=== PATIENT | male | born 1995 | race African-American/Black ===

== ENCOUNTER 2022-05-12 18:58 | Emergency (ER) | payer OTHER, SELFPAY ==
[2022-05-12 19:17] VITALS: BP 132/86; PULSE 52; RESP 16; TEMP 36.6; O2SAT 100
--- NOTE | 2022-05-12 20:54 | ED.ANIMALBIT ---
HPI - Animal Bite General Chief Complaint: Animal Bite Stated Complaint: attacked by dog Time Seen by Provider: 05/12/22 20:06 History of Present Illness HPI narrative: 26-year-old male presents to the emergency room for evaluation of a dog bite. 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 Patient states that the dog bit him in the right axillary region. Patient went to [facility] initially, but left without being seen due to the excessive wait times. Patient did not inquire as to whether or not animal was up-to-date on its shots. Review of Systems Review of Systems: CONSTITUTIONAL: Denies fever, chills, or sweats. EYES: Denies visual changes, redness, or discharge. ENT: Denies rhinorrhea, congestion, sore throat, or otalgia. CARDIOVASCULAR: Denies chest pain, palpitations, or edema. RESPIRATORY: Denies cough or dyspnea. GASTROINTESTINAL: Denies abdominal pain, nausea, vomiting, or diarrhea. GENITOURINARY: Denies dysuria or hematuria. SKIN: Reports animal bite to right axillary region MUSCULOSKELETAL: Denies back pain, joint pain, or myalgia. NEUROLOGIC: Denies headache, numbness, dizziness, or weakness. PSYCHIATRIC: Denies anxiety or depression. Exam Narrative: GENERAL: Well-appearing, well-nourished, no physical limitations, and in no acute distress. HEAD: Normocephalic, atraumatic. EYES: Conjunctivae normal, PERRLA and EOMI. CHEST: Clear to auscultation. No respiratory distress. No wheezes rales or rhonchi. HEART: Regular rate and rhythm. No murmur heard. Normal peripheral pulses. ABDOMEN: Soft, nontender, nondistended, normal active bowel sounds. EXTREMITIES: Normal range of motion. No edema. No clubbing or cyanosis SKIN: right lateral torso: Multiple puncture wounds to axillary region, surrounding erythema. NEURO: No focal deficits. Alert and oriented x3. MAEW. CN's II-XI intact bilaterally, normal gait PSYCH: Cooperative. Normal mood and affect. Course Course Emergency Course: 2044: Patient refused treatment for rabies, stating that he was able to contact the examiner of currency of the dog. Picture Framer states that the dog is up-to-date on his rabies vaccinations. Explained the risks and benefits of not continuing Vital Signs Vital signs: Vital Signs Temperature 36.6 C 05/12/22 19:17 Pulse Rate 52 L 05/12/22 19:17 Respiratory Rate 16 05/12/22 19:17 Blood Pressure 132/86 05/12/22 19:17 Pulse Oximetry 100 05/12/22 19:17 Oxygen Delivery Room Air 05/12/22 19:17 Temperature 36.6 C 05/12/22 19:17 Pulse Rate 52 L 05/12/22 19:17 Respiratory Rate 16 05/12/22 19:17 Blood Pressure 132/86 05/12/22 19:17 Pulse Oximetry 100 05/12/22 19:17 Oxygen Delivery Room Air 05/12/22 19:17 Discharge Plan Discharge Clinical Impression: Bite by animal, Dog bite Patient Disposition: Home, Self-Care Condition: Stable Instructions: Antibiotic Form, Animal Bite (ED) Prescriptions: New amoxicillin-pot clavulanate 875-125 mg tablet 1 tablet PO Q12H 10 Days Qty: 20 0RF Follow-up/Referrals: PHYSICIAN,[facility] SPECIALIST [Primary Care Provider] - Time of Disposition: 20:57
[2022-05-12] MEDS: TETANUS,DIPHTHERIA,AC PERTUSSIS ADULT (0.5 ML) BOOSTRIX IM (21:45)
== END 2022-05-12 21:54 | disposition home or self-care (01) ==
PROVIDERS: Emergency Provider Nurse Practitioner Family; PCP Internal Medicine
DX: S41.151A Open bite of right upper arm, initial encounter (principal); Z23 Encounter for immunization; W54.0XXA Bitten by dog, initial encounter
CPT/HCPCS: 90471; 90714; 90715; 99283

== ENCOUNTER 2022-10-16 11:06 | Emergency (ER) | payer BC, SELFPAY ==
[2022-10-16 11:29] VITALS: BP 133/90; PULSE 52; RESP 20; TEMP 36.2; O2SAT 100
[2022-10-16 12:04] LABS: Strep Group A RT-PCR NOT DETECTED (Negative)
[2022-10-16 12:19] LABS: Influenza A QL RT-PCR Negative (Negative); Influenza B QL RT-PCR Negative (Negative); SARS-CoV-2 RNA PCR Negative (Negative)
[2022-10-16 14:14] VITALS: BP 135/89; PULSE 60; RESP 18; TEMP 36.4; O2SAT 100
[2022-10-16 14:50] LABS: Appearance Urine Clear (Clear); Bilirubin Urine Negative (Negative); Blood Urine Negative (Negative); Color Urine Yellow (Yellow); Glucose Urine UA Negative (Negative); Ketones Urine Negative (Negative); Leukocyte Esterase Ur Negative LEU/UL (Negative); Nitrate Urine Negative (Negative); Protein Urine Negative (Negative); Specific Grav Ur 1.028 (1.001-1.035)
[2022-10-16 14:53] LABS: Add Urine Microscopic? NO
--- NOTE | 2022-10-16 15:29 | ED.URI ---
HPI - URI/Sore Throat General Chief Complaint: Upper Respiratory Infection Stated Complaint: fever and congestion Time Seen by Provider: 10/16/22 14:26 History of Present Illness HPI Narrative: 26-year-old male here for evaluation of upper respiratory infectious symptoms x1 day. Patient states that he started to feel unwell yesterday with some chills, sore throat and swollen glands in his neck. Patient states that his niece is sick with similar symptoms but his COVID test was negative. He has not taken any medicine for his symptoms. States he presented to the ED because I just do not have time to be sick . He was treated for UTI and chlamydia last week with Rocephin IM, doxycycline, and was on Bactrim for UTI. States his urinary symptoms have improved, wanting tested for cure. Related Data Allergies Allergy/AdvReac Type Severity Reaction Status Date / Time No Known Allergies Allergy Verified 10/16/22 14:18 Exam Narrative: APPEARANCE: Well appearing, no pain in distress, well-nourished. Head: Normocephalic and atraumatic. EYES: PERRLA/EOMI, conjunctivae clear NOSE: No nasal drainage EARS: Ceruminosis. External ear normal in appearance THROAT: Tonsils are 1+ bilaterally without exudates. Uvula is midline. Oropharynx is clear. Mucous membranes are moist. NECK: Supple. No adenopathy, no masses. RESPIRATORY: Airway patent, respirations nonlabored. Clear to auscultation bilaterally, no rales, rhonchi, wheezing. CARDIOVASCULAR: Regular rate and rhythm without murmurs, rubs, or gallops. ABDOMINAL: Normoactive bowel sounds. Soft, nontender, nondistended. No rebound tenderness or guarding. MUSCULOSKELETAL: Extremities are warm and well-perfused. Moves all extremities well. No edema. NEURO: Normal speech. No focal neurologic deficits. SKIN: Skin is warm and dry. No rashes. PSYCHIATRIC: Normal affect/mood.. Course Vital Signs Vital signs: Vital Signs Temperature 97.2 F L 10/16/22 11:29 Pulse Rate 52 L 10/16/22 11:29 Respiratory Rate 20 10/16/22 11:29 Blood Pressure 133/90 10/16/22 11:29 Pulse Oximetry 100 10/16/22 11:29 Oxygen Delivery Room Air 10/16/22 11:29 Temperature 97.5 F L 10/16/22 14:14 Pulse Rate 60 10/16/22 14:14 Respiratory Rate 18 10/16/22 14:14 Blood Pressure 135/89 10/16/22 14:14 Pulse Oximetry 100 10/16/22 14:14 Oxygen Delivery Room Air 10/16/22 11:29 MDM - URI/Sore Throat MDM Narrative Medical decision making narrative: 26-year-old male here for evaluation of upper respiratory infectious symptoms x1 day. He is nontoxic in appearance and has normal vital signs. Heart, lungs clear to auscultation, posterior oropharynx is normal in appearance. Strep, COVID flu negative. Likely viral URI. Additionally, patient is requesting test of cure as he was treated for chlamydia last week. Advised patient that these test do not result today and he will need to follow-up on the results himself. UA is unremarkable. Discharged home, we discussed return precautions and he voiced understanding. Lab Data Labs: Lab Results 10/16/22 10/16/22 Range/Units 11:34 14:36 Urine Color Yellow (Yellow) Urine Appearance Clear (Clear) Urine pH 6.0 (5.0-9.0) Ur Specific [place] 1.028 (1.001-1.035) Urine Protein Negative (Negative) mg/dL Urine Glucose (UA) Negative (Negative) mg/dL Urine Ketones Negative (Negative) mg/dL Ur Blood (Man) Negative (Negative) Urine Nitrate Negative (Negative) Urine Bilirubin Negative (Negative) Urine Urobilinogen 1.0 (<2.0) mg/dL Leukocyte Esterase Rfl Negative (Negative) NIYAH/UL C.trachomatis RNA (TMA) Pending Influenza A (RT-PCR) Negative (Negative) Influenza B (RT-PCR) Negative (Negative) N.gonorrhoeae RNA (TMA) Pending SARS-CoV-2 RNA (RT-PCR) Negative (Negative) Group A Strep (PCR) Not detected (Negative) Trichomonas Direct ID Cancelled T. vaginalis Amp RNA
== END 2022-10-16 16:05 | disposition home or self-care (01) ==
PROVIDERS: Emergency Medicine; Emergency Provider Physician Assistant; PCP Internal Medicine
DX: J06.9 Acute upper respiratory infection, unspecified (principal); Z20.822 Contact with and (suspected) exposure to COVID-19
CPT/HCPCS: 81003; 87491; 87591; 87636; 87651; 87661; 99283

== ENCOUNTER 2023-01-27 06:56 | Emergency (ER) | payer BC, SELFPAY ==
[2023-01-27 07:09] VITALS: BP 136/88; PULSE 59; RESP 18; TEMP 36.3; O2SAT 100
--- NOTE | 2023-01-27 07:46 | ED.GENADULT ---
HPI - General Adult General Chief complaint: Unspecified Stated complaint: Chills, bodyaches Time Seen by Provider: 01/27/23 07:46 Source: patient and RN notes reviewed History of Present Illness HPI narrative: 27 years old -[place] bisexual male presents with feeling chilly, not feeling well since started doxycycline and January 13 for recent diagnosis of syphilis. Patient was diagnosed of [facility] and [facility] on [facility] 13 started on doxycycline 100 twice daily, but not feeling well since. He denies any fever, nausea, vomiting, abdominal pain, back pain, headache. Related Data Home Medications Medication Instructions Recorded Confirmed doxycycline hyclate 100 mg 100 mg PO BID 01/27/23 tablet,delayed release Allergies Allergy/AdvReac Type Severity Reaction Status Date / Time No Known Allergies Allergy Verified 01/27/23 07:39 Review of Systems Review of Systems: All systems reviewed & are unremarkable except as noted in HPI and below Exam Narrative: General appearance: Well-developed, well-nourished Skin: Normal color Head: Normocephalic, nontraumatic Eyes: Clear conjunctiva ENT: Oropharynx normal, ears normal, nose normal Neck: Supple, nontender Chest and respiratory: Airway patent, no respiratory distress, no accessory muscle use Heart: Regular rate/rhythm Abdomen: Soft, nontender, no organomegaly, quiet bowel sounds Vascular: Normal peripheral pulses, normal capillary refill. Musculoskeletal: Normal range of motion, nontender back Neurologic: Alert and oriented ?3, HOME IMPROVEMENT ADVISOR is normal as tested, no gross motor deficit Course Reevaluation(s) Reevaluation #1: No new changes compared to on arrival to the ED Date: 01/27/23 Time: 08:26 Vital Signs Vital signs: Vital Signs Temperature 36.3 C L 01/27/23 07:09 Pulse Rate 59 L 01/27/23 07:09 Respiratory Rate 18 01/27/23 07:09 Blood Pressure 136/88 01/27/23 07:09 Pulse Oximetry 100 01/27/23 07:09 Oxygen Delivery Room Air 01/27/23 07:09 Temperature 36.3 C L 01/27/23 07:09 Pulse Rate 59 L 01/27/23 07:09 Respiratory Rate 18 01/27/23 07:09 Blood Pressure 136/88 01/27/23 07:09 Pulse Oximetry 100 01/27/23 07:09 Oxygen Delivery Room Air 01/27/23 07:09 Medical Decision Making MDM Narrative Medical decision making narrative: Patient had recent diagnosis of gonorrhea and syphilis, started on doxycycline and January 13 not been feeling well since. Doxycycline versus complication of syphilis and gonorrhea are my concern. Work-up today include CBC, CMP and urine analysis showed no abnormalities. Patient probably need to change the antibiotic to something else. Patient was advised to follow-up with the health department for further management. Differential Diagnosis Differential Diagnosis: Drug reaction, complication of syphilis and gonorrhea, electrolyte imbalance, dehydration, urinary tract infection Medical Records Medical records reviewed: Yes I reviewed the external patient's medical records. Vital Signs Vital Signs: Vital Signs Temperature 36.3 C L 01/27/23 07:09 Pulse Rate 59 L 01/27/23 07:09 Respiratory Rate 18 01/27/23 07:09 Blood Pressure 136/88 01/27/23 07:09 Pulse Oximetry 100 01/27/23 07:09 Oxygen Delivery Room Air 01/27/23 07:09 Temperature 36.3 C L 01/27/23 07:09 Pulse Rate 59 L 01/27/23 07:09 Respiratory Rate 18 01/27/23 07:09 Blood Pressure 136/88 01/27/23 07:09 Pulse Oximetry 100 01/27/23 07:09 Oxygen Delivery Room Air 01/27/23 07:09 Lab Data Lab results reviewed: Yes I reviewed the patient's lab results. 01/27/23 08:09 01/27/23 08:
[2023-01-27 08:14] LABS: Basophils Percent Auto 0.4 % (0.2-1.2); Eosinophils Absolute Auto 0.1 K/mm3 (0-0.3); Eosinophils Percent Auto 1.5 % (0-4.4); Immature Granulocyte Absolute 0.01 K/mm3 (0.00-0.031); Immature Granulocyte Percent A 0.2 % (0-0.5); Lymphocytes Absolute Auto 1.83 K/mm3 (0.9-3.2); Lymphocytes Percent Auto 39.8 % (18.3-44.2); Mean Corpuscular HGB Conc 32.6 g/dl (32-36); Mean Corpuscular Hemoglobin 28.7 pg (26-34); Mean Corpuscular Volume 88.3 fl (80-100); Monocytes Absolute Auto 0.5 K/mm3 (0.1-0.6); Neutrophils Absolute Auto 2.2 K/mm3 (1.3-6.7); Neutrophils Percent Auto 48.1 % (45.5-73.1); Platelet Count Result 169 k/mm3 (150-375); Red Blood Count 4.87 M/mm3 (4.6-6.20); Red Cell Distribution Width 14.1 % (11.5-14.5); White Blood Count 4.6 K/mm3 (4.5-10.0)
[2023-01-27 08:24] LABS: Alanine Aminotransferase 31 U/L (6-50); Albumin Level 4.2 g/dL (3.5-5.1); Alkaline Phosphatase 68 U/L (38-126); Anion Gap 4 mmol/L (8-16); Aspartate Amino Transferase 31 U/L (17-59); Bilirubin,Total 1.1 mg/dL (0.2-1.3); Blood Urea Nitrogen 12 mg/dL (9-20); Calcium 8.9 mg/dL (8.4-10.2); Carbon Dioxide 29 mmol/L (22-30); Chloride 102 mmol/L (98-107); Estimated CRCL calculation 107 ml/min; Estimated Glomerular Filt Rate > 60; Glucose 94 mg/dL (65-110); Sodium 135 mmol/L (137-145)
== END 2023-01-27 09:45 | disposition home or self-care (01) ==
PROVIDERS: Emergency Provider Emergency Medicine; PCP Internal Medicine
DX: A53.9 Syphilis, unspecified (principal); A54.9 Gonococcal infection, unspecified
CPT/HCPCS: 36415; 80053; 85025; 99283

== ENCOUNTER 2023-08-19 05:58 | Emergency (ER) | payer BC, SELFPAY ==
[2023-08-19 06:03] VITALS: BP 148/90; PULSE 78; RESP 18; O2SAT 100
[2023-08-19 06:07] VITALS: RESP 17
[2023-08-19 06:24] VITALS: BP 134/95; PULSE 78; RESP 15; TEMP 37.7; O2SAT 100
[2023-08-19 06:54] LABS: Appearance Urine Clear (Clear); Bacteria Urine None Seen /hpf; Bilirubin Urine Negative (Negative); Blood Urine Negative (Negative); Color Urine Yellow (Yellow); Glucose Urine UA Negative (Negative); Ketones Urine Negative (Negative); Leukocyte Esterase Ur Trace LEU/UL (Negative); Nitrate Urine Negative (Negative); Non Pathogenic Casts 0-2; Protein Urine Negative (Negative); RBC Urine 0-2 /hpf (0-2); Specific Grav Ur 1.025 (1.001-1.035); Squamous Epithelial Cell Urine None seen /hpf (Few)
[2023-08-19 06:56] LABS: Add Urine Microscopic? YES
[2023-08-19 06:57] LABS: Influenza A QL RT-PCR Negative (Negative); Influenza B QL RT-PCR Positive (Negative); RSV RNA, RT-PCR Negative (Negative); SARS-CoV-2 RNA PCR Negative (Negative)
[2023-08-19 07:12] VITALS: BP 141/87; PULSE 76; RESP 16; O2SAT 100
[2023-08-19 08:03] LABS: Chlamydia trachomatis NOT DETECTED (NOT DETECTE); Neisseria gonorrhoeae PCR NOT DETECTED (NOT DETECTE)
--- NOTE | 2023-08-19 08:03 | ED.GENADULT ---
HPI - General Adult General Chief complaint: Unspecified Stated complaint: flu symptoms Time Seen by Provider: 08/19/23 06:58 History of Present Illness HPI narrative: Patient is a 27-year-old male who presents ER with multiple complaints. He reports today he woke up and he is having fevers and chills as well as body aches. She has some mild cough. He is concerned he may have the flu. This just happened to coincide on a day when he is planning to go [facility] to be tested for sexually transmitted infections. He reports he was contacted by 1 of his sexual partners who he last had intercourse with 6 weeks ago. He reports that 2 weeks ago he was contacted that he may have been exposed to an STI. He reports that he developed some burning urination around that time that he thought was due to dehydration. Related Data Home Medications Medication Instructions Recorded Confirmed doxycycline hyclate 100 mg 100 mg PO BID 01/27/23 tablet,delayed release Allergies Allergy/AdvReac Type Severity Reaction Status Date / Time No Known Allergies Allergy Verified 01/27/23 07:39 Review of Systems Review of Systems: All systems reviewed & are unremarkable except as noted in HPI and below Constitutional: Constitutional: Reports chills and Reports fatigue ENT: Reports system reviewed and no additional complaints, except as documented Cardiovascular: Cardiovascular: Reports no additional cardiovascular complaints Respiratory: Respiratory: Reports no additional respiratory complaints Gastrointestinal: Gastrointestinal: Reports no additional gastrointestinal complaints Genitourinary: Genitourinary: Denies genital lesions, Reports dysuria, Denies penile discharge and Denies testicular pain PMFSH Past Medical History Medical History (Updated 08/19/23 @ 08:38 by Keith Robertson MD) Healthy adult male Surgical History Surgical History (Updated 08/19/23 @ 08:07 by Keith Robertson MD) No pertinent past surgical history Exam Narrative: GENERAL: Well-appearing, well-nourished, and in no acute distress. HEAD: Normocephalic, atraumatic. EYES: PERRL and EOMI. ENT: Mucous membranes moist. CHEST: Clear to auscultation. No respiratory distress. HEART: Regular rate and rhythm. Normal peripheral pulses. ABDOMEN: Soft, nontender, nondistended. EXTREMITIES: Normal range of motion. No edema. NEURO: Alert and oriented x3. PSYCH: Normal mood and affect. Course Course Emergency Course: -Course: Resting comfortably, no issues. -Co-morbidities complicating care: None -Social determinants of health: patient is a 7th grade social studies teacher. -External Chart Review: None -Hx from independent Sources: patient -Independent interpretation of studies: GC and chlamydia negative. Patient influenza B positive. Urine with possible infection. -Interventions: No medications. -Shared decision making / Disposition: Discussed results. Discharged with oral antibiotic as well as Tamiflu. Treating UTI and influenza B. Vital Signs Vital signs: Vital Signs Pulse Rate 78 08/19/23 06:03 Respiratory Rate 18 08/19/23 06:03 Blood Pressure 148/90 H 08/19/23 06:03 Pulse Oximetry 100 08/19/23 06:03 Oxygen Delivery Room Air 08/19/23 06:03 Temperature 99.9 F H 08/19/23 06:24 Pulse Rate 82 08/19/23 08:17 Respiratory Rate 13 08/19/23 08:17 Blood Pressure 134/82 08/19/23 08:17 Pulse Oximetry 97 08/19/23 08:17 Oxygen Delivery Room Air 08/19/23 06:03 Medical Decision Making Vital Signs Vital Signs: Vital Signs Pulse Rate 78 08/19/23 06:03 Respiratory Rate 18 08/19/23 06:03 Blood Pressure 148/90 H 08/19/23 06:03 Pulse Oximetry 100 08/19/23 06:03 Oxygen Delivery Room Air 08/19/23 06:03 Temperature 99.9 F H 08/19/23 06:24 Pulse Rate 82 08/19/23 08:17 Respiratory Rate 13 08/19/23 08:17 Blood Pressure 134/82 08/19/23 08:17 Pulse Oximetry
[2023-08-19 08:17] VITALS: BP 134/82; PULSE 82; RESP 13; O2SAT 97
== END 2023-08-19 08:46 | disposition home or self-care (01) ==
PROVIDERS: Emergency Medicine; Emergency Provider Emergency Medicine; PCP Internal Medicine
DX: J10.1 Influenza due to other identified influenza virus with other respiratory manifestations (principal); N39.0 Urinary tract infection, site not specified; Z20.822 Contact with and (suspected) exposure to COVID-19
CPT/HCPCS: 81001; 87086; 87491; 87591; 87637; 99283

== ENCOUNTER 2023-09-18 08:40 | Emergency (ER) | payer BC, SELFPAY ==
[2023-09-18 08:49] VITALS: BP 134/92; PULSE 64; RESP 16; TEMP 36.5; O2SAT 100
[2023-09-18 09:38] VITALS: BP 134/92; PULSE 64; RESP 16; TEMP 36.5; O2SAT 100
[2023-09-18 10:14] LABS: Appearance Urine Clear (Clear); Bilirubin Urine Negative (Negative); Blood Urine Negative (Negative); Color Urine Yellow (Yellow); Glucose Urine UA Negative (Negative); Ketones Urine Negative (Negative); Leukocyte Esterase Ur Negative LEU/UL (Negative); Nitrate Urine Negative (Negative); Protein Urine Negative (Negative); Specific Grav Ur 1.029 (1.001-1.035); Urobilinogen Urine 0.2 mg/dL (<2.0); pH Urine 5.5 (5.0-9.0)
--- NOTE | 2023-09-18 10:15 | ED.RECABL ---
HPI - Recheck/Abnormal Lab/Rx General Chief Complaint: Recheck/Abnormal Lab/Rx Stated Complaint: std testing Time Seen by Provider: 09/18/23 09:53 Source: patient Mode of arrival: ambulatory Limitations: no limitations History of Present Illness HPI narrative: This is a 27-year-old male that presents to the emergency department for STD check. Reports he had unprotected intercourse a couple of weeks prior. He was told by 1 of his partners that they have herpes. He would like to be tested for STDs today. He does not have any symptoms currently. Denies fevers, dysuria, or abnormal lesions or rashes. Related Data Home Medications Medication Instructions Recorded Confirmed doxycycline hyclate 100 mg 100 mg PO BID 01/27/23 tablet,delayed release Allergies Allergy/AdvReac Type Severity Reaction Status Date / Time No Known Allergies Allergy Verified 09/18/23 08:41 Review of Systems Review of Systems: CONSTITUTIONAL: Denies fever GENITOURINARY: Denies dysuria SKIN: Denies rash All systems reviewed & are unremarkable except as noted in HPI and below PMFSH Past Medical History Medical History (Updated 09/18/23 @ 13:28 by Glenny Qiu PA-C) Healthy adult male Surgical History Surgical History (Updated 08/19/23 @ 08:07 by Keith Robertson MD) No pertinent past surgical history Social History Social History (Updated 09/18/23 @ 10:16 by Glenny Qiu PA-C) Substance use: never Exam Narrative: GENERAL: Well-appearing, well-nourished, and in no acute distress. HEAD: Normocephalic, atraumatic. EYES: EOMI. EXTREMITIES: Normal range of motion. No edema. SKIN: Warm, dry, no rash. NEURO: No focal deficits. Alert and oriented x3. PSYCH: Normal mood and affect MALE GENITAL: Normal genitalia. No abnormal rashes or lesions noted. Normal appearing rectum Course Course Emergency Course: Patient updated on his workup. He does report history of syphilis infection about a year about for which he was treated Vital Signs Vital signs: Vital Signs Temperature 97.7 F 09/18/23 08:49 Pulse Rate 64 09/18/23 08:49 Respiratory Rate 16 09/18/23 08:49 Blood Pressure 134/92 H 09/18/23 08:49 Pulse Oximetry 100 09/18/23 08:49 Oxygen Delivery Room Air 09/18/23 08:49 Temperature 97.7 F 09/18/23 09:38 Pulse Rate 63 09/18/23 11:41 Respiratory Rate 17 09/18/23 11:41 Blood Pressure 136/95 H 09/18/23 11:41 Pulse Oximetry 100 09/18/23 11:41 Oxygen Delivery Room Air 09/18/23 09:38 MDM - Recheck/Abnormal Lab/Rx MDM Narrative Medical decision making narrative: Patient presents to the emergency department for an STD check. Asymptomatic. Reports he had a partner that had a herpes outbreak. No concerning findings on blood work. Chlamydia, gonorrhea, HIV, Trichomonas testing is negative. RPR is reactive. T pallidum antibody and titers are pending. HSV screens are pending as well. Patient does report he had syphilis about a year ago and was treated by the health department. He was given information to follow-up on his further results on her patient portal. He is to follow up with his primary provider. He was given warnings to return to the ER Differential Diagnosis Differential diagnosis: Likely other (STD check, HSV, syphilis) Lab Data Attestation: I reviewed the patient's lab results. 09/18/23 10:34 09/18/23 10:34 Labs: Lab Results 09/18/23 09/18/23 Range/Units 09:58 10:34 WBC 3.8 L (4.5-10.0) K/mm3 RBC 5.00 (4.6-6.20) M/mm3 Hgb 14.2 (14.0-18.0) g/dL Hct 43.5 (42.0-52.0) % MCV 87.0 (80-100) fl MCH 28.4 (26-34) pg MCHC 32.6 (32-36) g/dl RDW 13.7 (11.5-14.5) % Plt Count 153 (150-375) k/mm3 MPV 11.9 H (7.4-10.4) fl Immature Gran % (Auto) 0.0 (0-0.5) % Neut % (Auto) 50.7 (45.5-73.1) % Lymph % (Auto) 39.4 (18.3-44.2) % [place]pher[place] % (Auto) 8.4 (2.6-8.5) % Eos % (Auto) 1
[2023-09-18 10:17] LABS: Add Urine Microscopic? NO
[2023-09-18 10:46] LABS: Basophils Percent Auto 0.5 % (0.2-1.2); Hematocrit 43.5 % (42.0-52.0); Hemoglobin 14.2 g/dL (14.0-18.0); Lymphocytes Percent Auto 39.4 % (18.3-44.2); Mean Corpuscular HGB Conc 32.6 g/dl (32-36); Mean Corpuscular Hemoglobin 28.4 pg (26-34); Mean Platelet Volume 11.9 fl (7.4-10.4); Monocytes Absolute Auto 0.3 K/mm3 (0.1-0.6); Monocytes Percent Auto 8.4 % (2.6-8.5); Neutrophils Absolute Auto 1.9 K/mm3 (1.3-6.7); Neutrophils Percent Auto 50.7 % (45.5-73.1); Platelet Count Result 153 k/mm3 (150-375); Red Cell Distribution Width 13.7 % (11.5-14.5); White Blood Count 3.8 K/mm3 (4.5-10.0)
[2023-09-18 10:55] LABS: Alanine Aminotransferase 41 U/L (6-50); Albumin Level 4.4 g/dL (3.5-5.1); Alkaline Phosphatase 62 U/L (38-126); Anion Gap 4 mmol/L (4-12); Aspartate Amino Transferase 28 U/L (17-59); Bilirubin,Total 0.6 mg/dL (0.2-1.3); Blood Urea Nitrogen 16 mg/dL (9-20); Calcium 9.5 mg/dL (8.4-10.2); Carbon Dioxide 28 mmol/L (22-30); Chloride 106 mmol/L (98-107); Estimated CRCL calculation 121 ml/min; Estimated Glomerular Filt Rate > 60; Glucose 96 mg/dL (65-110); Potassium 4.1 mmol/L (3.4-5.0); Sodium 138 mmol/L (137-145)
[2023-09-18 11:19] LABS: Rapid Plasma Reagin Reactive (NonReactive)
[2023-09-18 11:19] LABS: Trichomonas Vag PCR NOT DETECTED (NOT DETECTE)
[2023-09-18 11:41] VITALS: BP 136/95; PULSE 63; RESP 17; O2SAT 100
[2023-09-18 11:58] LABS: HIV 1/2 Ab P24 Ag Result Negative (Negative)
[2023-09-18 12:51] LABS: Chlamydia trachomatis NOT DETECTED (NOT DETECTE); Neisseria gonorrhoeae PCR NOT DETECTED (NOT DETECTE)
[2023-09-21 14:24] LABS: Treponema pallidum Ab FTA ABS Reactive (Nonreactive)
== END 2023-09-18 13:37 | disposition home or self-care (01) ==
PROVIDERS: Emergency Provider Physician Assistant; PCP Internal Medicine
DX: Z20.2 Contact with and (suspected) exposure to infections with a predominantly sexual mode of transmission (principal)
CPT/HCPCS: 36415; 80053; 81003; 85025; 86592; 86695; 86696; 86703; 86780; 87491; 87591; 87661; 99283; G0432

== ENCOUNTER 2024-04-13 21:02 | Emergency (ER) | payer BC, SELFPAY ==
--- NOTE | ~2024-04-13 | XR_ITS ---
EXAMINATION: XR chest 1V DATE: 04/13/2024 21:24 INDICATION: Cough TECHNIQUE: frontal view of the chest was obtained. COMPARISON: None FINDINGS: The lungs are clear with no focal airspace opacities, pulmonary edema, pleural effusion or pneumothor ax. The cardiomediastinal silhouette is normal. Visualized bones and soft tissues are unremarkable. IMPRESSION: 1. Normal chest radiograph. Reviewed, dictated and finalized at location A. IMPRESSION: 1. Normal chest radiograph.
[2024-04-13 21:04] VITALS: BP 154/94; PULSE 65; RESP 15; TEMP 36.4; O2SAT 98
--- NOTE | 2024-04-13 21:23 | ED_ITS ---
HPI - URI/Sore Throat General Chief Complaint: Upper Respiratory Infection <Charu Donohuever III, DO - Last Filed: 04/13/24 21:59> Stated Complaint: cough, fever <Charu Derick Haile III, DO - Last Filed: 04/13/24 21:59> Time Seen by Provider: 04/13/24 21:14 <Charufrancy Donohuever III, DO - Last Filed: 04/13/24 21:59> History of Present Illness HPI Narrative: Pt presents with multiple complaints. Pt says he feels warm all over but has not had a fever. Pt has sore throat and cough. Pt has dysuria and frequency but no discharge. Pt denies vomiting or diarrhea or other sick contacts. <Charu Haile III, DO - Last Filed: 04/13/24 21:59> Related Data Home Medications: Home Medications Medication Instructions Recorded Confirmed doxycycline hyclate 100 mg 100 mg PO BID 01/27/23 tablet,delayed release <Charu Haile III, DO - Last Filed: 04/13/24 21:59> Allergies/Adverse Reactions: Allergies Allergy/AdvReac Type Severity Reaction Status Date / Time No Known Allergies Allergy Verified 04/13/24 21:04 <Charu Haile III, DO - Last Filed: 04/13/24 21:59> Review of Systems Review of Systems: All systems reviewed & are unremarkable except as noted in HPI and below <Charu Sepulveda Haile III, DO - Last Filed: 04/13/24 21:59> PENDING SALE TO [facility] Past Medical History Medical History: Medical History (Updated 04/14/24 @ 00:00 by Jose Raul Grant) Healthy adult male <Charufrancy Donohuever III, DO - Last Filed: 04/13/24 21:59> Surgical History Surgical History: Surgical History (Updated 08/19/23 @ 08:07 by Keith Robertson MD) No pertinent past surgical history <Charufrancy Sepulveda Haile III, DO - Last Filed: 04/13/24 21:59> Social History Social History: Social History (Updated 09/18/23 @ 10:16 by Glenny Qiu PA-C) Substance use: never <Charufrancy Donohuever III, DO - Last Filed: 04/13/24 21:59> Exam Const: General: healthy appearing and no acute distress <Charu Derick Haile III, DO - Last Filed: 04/13/24 21:59> Nutritional Appearance: well nourished <Charu Derick Haile III, DO - Last Filed: 04/13/24 21:59> Orientation/consciousness: patient oriented x3 <Charu Derick Haile III, DO - Last Filed: 04/13/24 21:59> Limitations: no limitations <Charu Derick Haile III, DO - Last Filed: 04/13/24 21:59> HENMT: Mouth: Yes Normal oral and palatal mucosa present <Charu Derick Haile III, DO - Last Filed: 04/13/24 21:59> Throat: posterior oropharynx normal <Charu Derick Haile III, DO - Last Filed: 04/13/24 21:59> Resp: Effort & Inspection: normal respiratory effort <Charu Derick Haile III, DO - Last Filed: 04/13/24 21:59> Auscultation: clear to auscultation bilaterally <Charu Derick Haile III, DO - Last Filed: 04/13/24 21:59> Cardio: Rate: regular rate <Charu Derick Haile III, DO - Last Filed: 04/13/24 21:59> Rhythm: regular rhythm <Charu Derick Haile III, DO - Last Filed: 04/13/24 21:59> GI: GI Palp: Yes Soft to palpation and No Tenderness to palpation present (GI) <Charu Derick Haile III, DO - Last Filed: 04/13/24 21:59> Auscultation: normal bowel sounds <Charu Derick Haile III, DO - Last Filed: 04/13/24 21:59> Skin: General skin exam: normal color <Charu Derick Haile III, DO - Last Filed: 04/13/24 21:59> Rashes: no rashes <Charu Derick Haile III, DO - Last Filed: 04/13/24 21:59> Wounds: no wounds <Charu Derick Haile III, DO - Last Filed: 04/13/24 21:59> Neuro: General: patient oriented x3, moves all extremities, no meningeal signs, no focal motor deficits and CN's II-XI intact bilaterally <Charu Derick Haile III, DO - Last Filed: 04/13/24 21:59> Cranial nerves: Yes Nystagmus not present <Charu Derick Haile III, DO - Last Filed: 04/13/24 21:59> Speech: normal speech <Charu Derick Haile III, DO - Last Filed: 04/13/24 21:59> Extrem: General: normal to inspection and no clubbing, cyanosis or edema <Charu Derick Haile III, DO - Last Filed: 04/13/24 21:59> Psych: Mental Status: mental status grossly normal <Charu Derick Haile III, DO - Last Filed: 04/13/24 21:59> Affect: normal affect <Charu Derick Haile III, DO - Last Filed: 04/13/24 21:59> Attitude: cooperative <Charu Derick Haile III, DO - Last Filed: 04/13/24 21:59> Course Vital Signs Vital signs: Vital Signs Temperature 97.6 F 04/13/24 21:04 Pulse Rate 65 04/13/24 21:04 Respiratory Rate 15 04/13/24 21:04 Blood Pressure 154/94 H 04/13/24 21:04 Pulse Oximetry 98 04/13/24 21:04 Oxygen Delivery Room Air 04/13/24 21:04 Temperature 98.3 F 04/13/24 22:38 Pulse Rate 64 04/13/24 22:38 Respiratory Rate 15 04/13/24 22:38 Blood Pressure 133/90 04/13/24 22:38 Pulse Oximetry 100 04/13/24 22:38 Oxygen Delivery Room Air 04/13/24 21:04 <Charu Derick Haile III, DO - Last Filed: 04/13/24 21:59> Vital Signs Temperature 97.6 F 04/13/24 21:04 Pulse Rate 65 04/13/24 21:04 Respiratory Rate 15 04/13/24 21:04 Blood Pressure 154/94 H 04/13/24 21:04 Pulse Oximetry 98 04/13/24 21:04 Oxygen Delivery Room Air 04/13/24 21:04 Temperature 98.3 F 04/13/24 22:38 Pulse Rate 64 04/13/24 22:38 Respiratory Rate 15 04/13/24 22:38 Blood Pressure 133/90 04/13/24 22:38 Pulse Oximetry 100 04/13/24 22:38 Oxygen Delivery Room Air 04/13/24 21:04 <Suman Dougherty MD - Last Filed: 04/14/24 07:32> MDM - URI/Sore Throat MDM Narrative Medical decision making narrative: Pt has both urinary and uri complaints. Pt has prior hx of Si so will give rocephin and zithormax and check cxr covid and strep and ua. will turn over to Dr Dougherty at 2200 awaiting covid, flu and UA. <Charu Sepulveda Haile III, DO - Last Filed: 04/13/24 21:59> Pt has both urinary and uri complaints. Pt has prior hx of Si so will give rocephin and zithormax and check cxr covid and strep and ua. will turn over to Dr Dougherty at 2200 awaiting covid, flu and UA. Elbashir: Patient's viral swabs were negative. Urinalysis did reveal 1+ leuk esterases with 11-20 white blood cells and given patient's dysuria he was informed that he will be placed on an oral antibiotic to take for the next week to cover him for urinary tract infection. Patient was discharged in stable condition. Instructed to follow up with his family doctor within the next 3-5 days and to return to the ED if any new or worsening symptoms develop. <Suman Dougherty MD - Last Filed: 04/14/24 07:32> Lab Data Labs: Lab Results 04/13/24 04/13/24 Range/Units 21:16 21:41 Urine Color Yellow (Yellow) Urine Appearance Cloudy H (Clear) Urine pH 5.5 (5.0-9.0) Ur Specific [place] 1.026 (1.001-1.035) Urine Protein Negative (Negative) mg/dL Urine Glucose (UA) Negative (Negative) mg/dL Urine Ketones Trace H (Negative) mg/dL Ur Blood (Man) Negative (Negative) Urine Nitrate Negative (Negative) Urine Bilirubin Negative (Negative) Urine Urobilinogen 1.0 (<2.0) mg/dL Leukocyte Esterase Rfl 1+ H (Negative) NIYAH/UL Urine RBC 0-2 (0-2) /hpf Urine WBC 11-20 H (0-3) /hpf Ur Squamous Epith Cells None seen (Few) /hpf Urine Bacteria None seen /hpf Urine Casts 0-2 Influenza A (RT-PCR) Negative (Negative) Influenza B (RT-PCR) Negative (Negative) RSV (RT-PCR) Negative (Negative) SARS-CoV-2 RNA (RT-PCR) Negative (Negative) Group A Strep (PCR) Not detected (Negative) <Charu Derick Haile III, DO - Last Filed: 04/13/24 21:59> Lab Results 04/13/24 04/13/24 Range/Units 21:16 21:41 Urine Color Yellow (Yellow) Urine Appearance Cloudy H (Clear) Urine pH 5.5 (5.0-9.0) Ur Specific [place] 1.026 (1.001-1.035) Urine Protein Negative (Negative) mg/dL Urine Glucose (UA) Negative (Negative) mg/dL Urine Ketones Trace H (Negative) mg/dL Ur Blood (Man) Negative (Negative) Urine Nitrate Negative (Negative) Urine Bilirubin Negative (Negative) Urine Urobilinogen 1.0 (<2.0) mg/dL Leukocyte Esterase Rfl 1+ H (Negative) NIYAH/UL Urine RBC 0-2 (0-2) /hpf Urine WBC 11-20 H (0-3) /hpf Ur Squamous Epith Cells None seen (Few) /hpf Urine Bacteria None seen /hpf Urine Casts 0-2 Influenza A (RT-PCR) Negative (Negative) Influenza B (RT-PCR) Negative (Negative) RSV (RT-PCR) Negative (Negative) SARS-CoV-2 RNA (RT-PCR) Negative (Negative) Group A Strep (PCR) Not detected (Negative) <Suman Dougherty MD - Last Filed: 04/14/24 07:32> Discharge Plan Discharge Clinical Impression: Pharyngitis, Dysuria <Charu Derick Haile III, DO - Last Filed: 04/13/24 21:59> Patient Disposition: Home, Self-Care <Charu Derick Haile III, DO - Last Filed: 04/13/24 21:59> Condition: Stable <Charu Derick Haile III, DO - Last Filed: 04/13/24 21:59> Instructions: Antibiotic Form, Viral Syndrome (ED), Dysuria (ED) <Charu Derick Haile III, DO - Last Filed: 04/13/24 21:59> Additional Instructions: Please follow-up with your family doctor within the next 3-5 days. Return to the emergency department if any new or worsening symptoms develop. Take the prescribed antibiotic as instructed for UTI. <Charu Haile III, DO - Last Filed: 04/13/24 21:59> Prescriptions: New cephalexin 500 mg capsule 500 mg PO Q12H 7 Days Qty: 14 0RF No Action cefuroxime axetil 500 mg tablet 500 mg PO BID Qty: 14 0RF oseltamivir [Tamiflu] 75 mg capsule 75 mg PO Q12H 5 Days Qty: 10 0RF doxycycline hyclate 100 mg Tablet,Delayed Release (Dr/Ec) 100 mg PO BID <Charu Haile III, DO - Last Filed: 04/13/24 21:59> Follow-up/Referrals: Dori,Bob Barroso MD [Primary Care Provider] - 3 Days <Charu Haile III, DO - Last Filed: 04/13/24 21:59> Time of Disposition: 22:30 <Charu Haile III, DO - Last Filed: 04/13/24 21:59> 22:30 <Suman Dougherty MD - Last Filed: 04/14/24 07:32>
[2024-04-13] MEDS: AZITHROMYCIN 250 MG TABLET 1000 MG PO (21:47)
[2024-04-13 21:48] LABS: Strep Group A RT-PCR NOT DETECTED (Negative)
[2024-04-13] MEDS: cefTRIAXone 1 GM VIAL 0.5 GM IM (21:49)
[2024-04-13 21:54] LABS: Add Urine Microscopic? YES; Appearance Urine Cloudy (Clear); Bacteria Urine None Seen /hpf; Bilirubin Urine Negative (Negative); Blood Urine Negative (Negative); Color Urine Yellow (Yellow); Glucose Urine UA Negative (Negative); Ketones Urine Trace mg/dL (Negative); Leukocyte Esterase Ur 1+ LEU/UL (Negative); Nitrate Urine Negative (Negative); Non Pathogenic Casts 0-2; Protein Urine Negative (Negative); RBC Urine 0-2 /hpf (0-2); Specific Grav Ur 1.026 (1.001-1.035); Squamous Epithelial Cell Urine None Seen /hpf (Few); pH Urine 5.5 (5.0-9.0)
[2024-04-13 21:59] LABS: Influenza A QL RT-PCR Negative (Negative); Influenza B QL RT-PCR Negative (Negative); RSV RNA, RT-PCR Negative (Negative); SARS-CoV-2 RNA PCR Negative (Negative)
[2024-04-13 22:38] VITALS: BP 133/90; PULSE 64; RESP 15; TEMP 36.8; O2SAT 100
== END 2024-04-13 22:39 | disposition home or self-care (01) ==
PROVIDERS: Emergency Medicine; Emergency Provider Emergency Medicine; PCP Internal Medicine
DX: J02.9 Acute pharyngitis, unspecified (principal); R30.0 Dysuria; Z20.822 Contact with and (suspected) exposure to COVID-19
CPT/HCPCS: 71045; 81001; 87086; 87637; 87651; 96372; 99283; A9270; J0696

== ENCOUNTER 2024-09-27 20:13 | Emergency (ER) | payer OTHER, SELFPAY ==
--- OUTSIDE RECORDS SUMMARY | 2024-09-27 20:15 | XMS_ITS | Clinical Summary ---
Author Organization [facility] Address [address] [place] [address] Care Team Providers Care Residential Energy Auditor Name Role Phone Bob Meadows MD Primary Care Provider [phone] Source Comments [facility],non-owned Affiliates and Associated Physician Practices is amultiple site organization consisting of ambulatory clinics and hospital sitesin [place], [place], [place] and [place]. This disclosure is being madepursuant to the Care Everywhere program and may not contain all information available regarding this patient. Last updated 18.[facility] Allergies No known active allergies Medications * Be aware that medications may not be up to date on this document. Alwaysverify current medications with the patient. Medication Sig Dispensed Refills Start Date End Date Status sodium chloride ([place]; [place]) 0.65 % nasal spray [place] 1 (one) spray into each nostril 3 times daily 480 mL 03/25/2023 Active Social History Tobacco Use Types Packs/Day Years Used Date Smoking Tobacco: Never Smokeless Tobacco: Never Tobacco Cessation:Counseling Given: Not Answered Alcohol Use Standard Drinks/Week Comments Never 0 (1 standard drink = 0.6 oz pur e alcohol) AUDIT-C Answer Date Recorded Q1: How often do you have a drink containing alcohol? Never 03/25/2023 Q2: How many drinks containi ng alcohol do you have on a typical day when you are drinking? Patient does not drink Q3: How often do you have si x or more drinks on one occasion? Never 03/25/2023 Sex and Gender Information Value Date Recorded Sex Assigned at Not on file Gender Identity Not on file Sexual Orientation Not on file Last Filed Vital Signs Vital Sign Reading Time Taken Comments Blood Pressure 144/106 03/25/2023 11:05 AM CDT Pulse 68 03/25/2023 11:25 AM CDT Temperature 36.7 C (98 F) 03/25/2023 11:25 AM CDT Respiratory Rate 13 03/25/2023 11:05 AM CDT Oxygen Saturation 97% 03/25/2023 11:40 AM CDT Inhaled Oxygen Concentration - - Weight 78.7 kg (173 lb 8 oz) 03/25/2023 7:22 AM CDT Height 170.2 cm (5' 7 ) 03/25/2023 7:22 AM CDT Body Mass Index 27.17 03/25/2023 7:22 AM CDT Plan of Treatment Health Maintenance Due Date Last Done Comments HIV SCREENING 2008 HEPATITIS C SCREENING 12/23/2011 DTAP/TDAP/TD VACCINES (1 - Tdap) 2012 HEPATITIS B VACCINE (1 of 3 - 19+ 3-dose series) 2012 COVID-19 VACCINE (1 - 2023-2 5 season) 2024 INFLUENZA VACCINE (#1) 2024 DEPRESSION SCREENING 06/22/2024 ZOSTER VACCINE (1 of 2) 12/28/2043 HIB VACCINE Aged Out No longer eligi ble based on patient's age to complete this topic HPV VACCINE Aged Out No longer eligi ble based on patient's age to complete this topic MENINGOCOCCAL (Group B) VACC INE SHARED DECISION-MAKING Aged Out No longer eligibl e based on patient's age to complete this topic MENINGOCOCCAL GROUPS A/C/Y/W VACCINE Aged Out No longer eligible b ased on patient's age to complete this topic PNEUMOCOCCAL VACCINE Aged Out No long er eligible based on patient's age to complete this topic Care Teams Residential Energy Auditor Relationship Specialty Start Date End Date Bob Meadows MD [address] [place] [address] [phone] PCP - General Internal Medicine 03/25/23
--- OUTSIDE RECORDS SUMMARY | 2024-09-27 20:15 | XMS_ITS | CONTINUITY OF CARE DOCUMENT ---
Author Name esha balbuena Address Unknown Organization [facility] Address [address] [place] [address] Phone [phone] Care Team Providers Care Door Patcher Name Role Phone Elías Meredith MD Unavailable INSURANCE PROVIDERS Payer name Policy type / Coverage type Garrick red green party ID [id number]
--- OUTSIDE RECORDS SUMMARY | 2024-09-27 20:15 | XMS_ITS | Data Portability ---
Author Organization [facility] Address [address] [place] [address] Assessment No assessment recorded. Plan of Treatment Reminders Order Date Submit Date Provider Last Modified By Organization Details Last Modified Time Details Appointments None recorded. Lab None recorded. Referral None recorded. Procedures None recorded. Surgeries None recorded. Imaging None recorded. Medication Orders Flonase Allergy Relief 50 mcg/actuati on nasal spray,suspe nsion 2014 015 eewig Not available 21:19:15 loratadine 10 mg tablet 2014 015 eewig Not available 5 21:19:15 albuterol sulfate HFA 90 mcg/actuati on aerosol inhaler 2014 015 eewig Not available 21:19:15 Patient TargetsNo targets recorded. Patient InstructionsNo instructions recorded. Reason for Referral None Reported. Problems Name Problem SNOMED Code Status Onset Date Resolution Date Notes Provider Name and Address Organization Details Recorded Time Asthma 835538698 Active Irena Rangel PA-C Attn: Accounting ,[address] [place], [address] , [facility] 21:19:15 Seasonal allergy 481174946 Dilan Rangel PA-C Attn: Accounting ,[address] [place], [address] , [facility] 21:19:15 Eczema [id number] Dilan Rangel PA-C Attn: Accounting ,[address] [place], [address] , [facility] 21:19:15 Impacted cerumen [id number] Dilan Rangel PA-C Attn: Accounting ,[address] [facility], [place], [address] , [facility] 5 21:19:15 Anxiety 48547150 Active Irnea Rangel PA-C Attn: Accounting ,[address] [facility], [place], [address] , [facility] 5 10:23:03 Problem Notes None recorded. Procedures Surgical History Date Name Laterality Status Provider Name and Address Organization Details Recorded Time 5 Cerumen Removal completed Irena Rangel PA-C Attn: Accounting,[address] [facility], [place], [address], [facility] 01/29/2015 21:19:15 Hernia Repair completed [facility] 01/23/2015 15:56:50 Imaging Results None recorded. Procedure Notes None recorded. Medical Equipment None Reported. Allergies No known drug allergies Medications Name Sig Start Date Stop Date Status Note LastModified by Organization Details LastModified Time cyclobenzapr ine 10 mg tablet active Not Available Not Available Not Available ibuprofen 800 mg tablet active Not Available Not Available Not Available hydroxyzine pamoate 50 mg capsule active Not Available Not Available N ot Available fluticasone propionate 50 mcg/actuatio n nasal spray,suspen ratna Take 1 spray every day by nasal route. active Not Available Not Available No t Available loratadine 10 mg tablet Take 1 tablet every day by oral route. active Not Available Not Available No t Available Ventolin HFA 90 mcg/actuatio n aerosol inhaler Inhale 2 puffs every 4 hours by inhalation route. active Not Available Not Available No t Available Vitals Date Recorded Respiratory rate Body weight Oxygen saturation Oxygen saturation in Arterial blood by Pulse oximetry Body height Body mass index (BMI) Body temperature Heart rate Systolic blood pressure Diastolic blood pressure Provider Name and Address Organization Details Last Updated DateTime 5 20 /min 83327.7 21413 g 99 % 99 % 167.64 cm 26.2 kg/m2 97.8 [degF] 72 /min 118 mm[Hg] 80 mm[Hg] [facility] 5 15:56:50 Date Recorded Respiratory rate Oxygen saturation Oxygen saturation in Arterial blood by Pulse oximetry Body height Body mass index (BMI) Body temperature Body weight Heart rate Systolic blood pressure Diastolic blood pressure Provider Name and Address Organization Details Last Updated DateTime 5 20 /min 100 % 100 % 167.64 cm 26.6 kg/m2 98.1 [degF] 27074.3 79218 g 81 /min 134 mm[Hg] 88 mm[Hg] Terry Worthy MA [place] - [facility] 5 09:12:13 Social History Question Answer Notes LastModified by Organizat ion Details LastModified Time Do You Have An Advance Directive? No [email or web address] Information not available 01/23/2015 What Is Your Level Of Alcohol Consumption? None [email or web address] Information not available 01/23/2015 What Is Your Level Of Caffeine Consumption? None [email or web address] Information not available 01/23/2015 How Much Tobacco Do You Chew? None [email or web address] Information not available 01/23/2015 What Type Of Diet Are You Following? REGULAR [email or web address] Information not available 01/23/2015 Which Illicit Or Recreational Drugs Have You Used? 0 [email or web address] Information not available 01/23/2015 Are There Any Guns Present In Your Home? No Information not available 01/23/2015 Hard Of Hearing Or Deaf In One Or Both Ears? No [email or web address] Information not available 01/23/2015 Legally Blind In One Or Both Eyes? No [email or web address] Information no t available 01/23/2015 Live Alone Or With Others? With Others [email or web address] Information not available 01/23/2015 How Many Children Do You Have? 0 Information not available 01/23/2015 Seat Belts Used Routinely Yes [email or web address] Information not available 01/23/2015 Smoke Alarm In Home Yes [email or web address] Information not available 01/23/2015 How Much Tobacco Do You Smoke? No [email or web address] Information not available 01/23/2015 General Stress Level Low [email or web address] Information not available 01/23/2015 Sex: Unknown Functional Status Question Answer Note LastModified by Organization D etails LastModified Time Are you able to care for yourself? Yes Information n ot available 01/23/2015 What is your exercise level? None [email or web address] Information not available 01/23/2015 Mental Status None recorded. Family History Nothing Reported. Medical History Condition Response Asthma Y Allergies Y Past Encounters Encounter ID Performer Location Encounter Start Date Encounter Closed Date Diagnosis/Indication Diagnosis SNOMED-CT Code Diagnosis ICD10 Code Diagnosis Note [id number] [facility] (Adult Med) [address] [place] [address] 01/23/2015 15:18:14 01/23/2015 17:27:19 Asthma 186881313 Seasonal allergy 152449844 Will call with which pharmacy while at school he is going to want to have his medication sent to Eczema 03203836 Impacted cerumen 09473543 [id number] CLEMENTINA Vega (Adult Med) [address] [place] [address] 06/18/2015 08:59:37 06/18/2015 10:24:34 Anxiety 68215330 F41.9 Discussed focusing on only school for the next semester States that there are not any counselors on campus but that he will look into it He is going to be moving back to [place] for the summer and taking summer classes here - if he desires to see a counselor this summer he was advised to call the office and ask for a counseling referral 2 months before he moves back to ensure that he can see a counselor while he is here Advised to try yoga, workout, google relaxation techniques Health Concerns Section Related Observation LastModified by Organization Detai ls LastModified Time None Recorded Concern Status LastModified by Organization Details LastModified Time None Recorded Advance Directives Directive N: Payers Encounter Date Sequence Insurance Name Policy Number Policy Boudreaux Covered Member ID Boudreaux Member ID Guarantor Name 01/23/2015 1 [facility] PRIOR TO 12/20/2020 (MEDICAID REPLACEMENT - HMO) Shivam Mccormick [id number] Shivam Mccormick 06/18/2015 1 [facility] PRIOR TO 2020 (MEDICAID REPLACEMENT - HMO) Shivam Mccormick [id number] Shivam Mccormick Notes Date Note Type Note Provider Name and Address Organization Details Recorded Time 01/23/2015 text/html Here to sabrina Rangel PA-C Attn: Accounting,[address] [place], [address], [facility] 01/29/2015 21:19:40 06/18/2015 text/html Emergency Room Follow-Up RecordReported bypatient.Notes:here for ED f/u for atypical CP and anxiety - states that he feels better now that he is out of [facility] because he's so stressed at school - states that there are no counselors on campus - 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
[2024-09-27 20:16] VITALS: BP 153/103; PULSE 60; RESP 16; TEMP 36.1; O2SAT 100
[2024-09-27 20:48] LABS: Strep Group A RT-PCR NOT DETECTED (Negative)
[2024-09-27 23:50] VITALS: BP 143/98; PULSE 77; RESP 18; TEMP 36.7; O2SAT 99
[2024-09-27] MEDS: LIDOCAINE 2% VISC SOLN 15 ML UDC PO (23:51)
--- NOTE | 2024-09-27 23:52 | ED_ITS ---
HPI - General Adult General Chief complaint: Unspecified Stated complaint: sore throat Time Seen by Provider: 09/27/24 23:52 Source: patient Mode of arrival: ambulatory Limitations: no limitations History of Present Illness HPI narrative: Patient is a 28 y/o male who presents to the ED with c/o sore throat. 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 States he was speaking a lot and very loudly. Since then, he has had a sore/raw throat. Denies difficulty breathing or swelling. Denies hoarse voice. Denies fevers, cough, congestion. Has not taken anything for symptoms. Related Data Home Medications ?Medication ?Instructions ?Recorded ?Confirmed ?Last Taken ?Type doxycycline hyclate 100 mg 100 mg PO BID 01/27/23 Unknown History tablet,delayed release Allergies Allergy/AdvReac Type Severity Reaction Status Date / Time No Known Allergies Allergy Verified 09/27/24 20:13 Review of Systems Review of Systems: All systems reviewed & are unremarkable except as noted in HPI. All systems reviewed & are unremarkable except as noted in HPI and below PMFSH Past Medical History Medical History Healthy adult male Surgical History Surgical History No pertinent past surgical history Social History Social History Substance use: never Exam Narrative: GENERAL: Well appearing, well-nourished, non-toxic, in no acute distress. HEAD: Normocephalic, atraumatic. ENT: Mild posterior pharynx erythema. No tonsillar hypertrophy or exudate. Uvula midline and nonedematous. No stridor or trismus. Mucous membranes are moist. Maintaining secretions. RESPIRATORY: Airway patent, respirations nonlabored. CARDIOVASCULAR: Regular rate and rhythm MUSCULOSKELETAL: Moves all extremities. No gross deformities. SKIN: Warm, dry, normal color. NEURO: A&O X3. Speech clear. PSYCHIATRIC: Appropriate mood and affect. Normal interaction. Course Vital Signs Vital signs: Vital Signs Temperature 97 F L 09/27/24 20:16 Pulse Rate 60 09/27/24 20:16 Respiratory Rate 16 09/27/24 20:16 Blood Pressure 153/103 H 09/27/24 20:16 Pulse Oximetry 100 09/27/24 20:16 Oxygen Delivery Room Air 09/27/24 20:16 Temperature 98.1 F 09/27/24 23:50 Pulse Rate 77 09/27/24 23:50 Respiratory Rate 18 09/27/24 23:50 Blood Pressure 143/98 H 09/27/24 23:50 Pulse Oximetry 99 09/27/24 23:50 Oxygen Delivery Room Air 09/27/24 20:16 Medical Decision Making MDM Narrative Medical decision making narrative: Strep negative. Discussed pharyngitis related to excessive speaking. Discussed management of such including hot teas with honey, fazt-uzr-[id number] pain relief, throat lozenges, throat sprays. Given return precautions. No signs or symptoms of peritonsillar abscess on exam. No signs or symptoms of respiratory compromise or airway involvement. Vital signs otherwise stable. Medical Records Medical records reviewed: Yes I reviewed the external patient's medical records. Vital Signs Vital Signs: Vital Signs Temperature 97 F L 09/27/24 20:16 Pulse Rate 60 09/27/24 20:16 Respiratory Rate 16 09/27/24 20:16 Blood Pressure 153/103 H 09/27/24 20:16 Pulse Oximetry 100 09/27/24 20:16 Oxygen Delivery Room Air 09/27/24 20:16 Temperature 98.1 F 09/27/24 23:50 Pulse Rate 77 09/27/24 23:50 Respiratory Rate 18 09/27/24 23:50 Blood Pressure 143/98 H 09/27/24 23:50 Pulse Oximetry 99 09/27/24 23:50 Oxygen Delivery Room Air 09/27/24 20:16 Lab Data Lab results reviewed: Yes I reviewed the patient's lab results. Labs: Lab Results 09/27/24 Range/Units 20:20 Group A Strep (PCR) Not detected (Negative) Discharge Plan Discharge Clinical Impression: Sore throat Patient Disposition: Home Condition: Stable Instructions: Antibiotic Form, Pharyngitis (ED) Additional Instructions: Recommend trying llvs-wjk-jaddgvf numbing sprays for relief of sore throat. Stay well hydrated. You may try tea with honey, salt water rinses, throat lozenges, cold/cough foods to help with pain. Recommend Tylenol and ibuprofen as needed for pain. Return to the ED for new or worsening concerns. Patient Language: Panamanian Prescriptions: No Action cefuroxime axetil 500 mg tablet 500 mg PO BID Qty: 14 0RF oseltamivir [Tamiflu] 75 mg capsule 75 mg PO Q12H 5 Days Qty: 10 0RF doxycycline hyclate 100 mg Tablet,Delayed Release (Dr/Ec) 100 mg PO BID cephalexin 500 mg capsule 500 mg PO Q12H 7 Days Qty: 14 0RF Follow-up/Referrals: Dori,Bob Barroso MD [Primary Care Provider] - Time of Disposition: 23:54
--- OUTSIDE RECORDS SUMMARY | 2024-09-28 00:08 | XMS_ITS | CONTINUITY OF CARE DOCUMENT ---
Author Name esha balbuena Address Unknown Organization [facility] Address [address] [place] [address] Phone [phone] Care Team Providers Care Iron Guardrail Installer Name Role Phone Elías Meredith MD Unavailable [phone] INSURANCE PROVIDERS Payer name Policy type / Coverage type Garrick red constitution party ID [id number]
--- OUTSIDE RECORDS SUMMARY | 2024-09-28 00:08 | XMS_ITS | Clinical Summary ---
Author Organization [facility] Address [address] [place] [address] Care Team Providers Care Traffic Officer Name Role Phone Bob Meadows MD Primary Care Provider [phone] Source Comments [facility],non-owned Affiliates and Associated Physician Practices is amultiple site organization consisting of ambulatory clinics and hospital sitesin [place], [place], [place] and [place]. This disclosure is being madepursuant to the Care Everywhere program and may not contain all information available regarding this patient. Last updated 18.[employer] [facility] Allergies No known active allergies Medications * Be aware that medications may not be up to date on this document. Alwaysverify current medications with the patient. Medication Sig Dispensed Refills Start Date End Date Status sodium chloride ([place]; Baby [place]) 0.65 % nasal spray [place] 1 (one) spray into each nostril 3 [...] age to complete this topic Care Teams Traffic Officer Relationship Specialty Start Date End Date Bob Meadows MD [address] [place] [address] [phone] PCP - General Internal Medicine 03/25/23
== END 2024-09-28 00:09 | disposition home or self-care (01) ==
LOC: ANHED 09-28 00:06
PROVIDERS: Preventive Medicine Aerospace Medicine; Emergency Provider Physician Assistant; PCP Internal Medicine
DX: J02.9 Acute pharyngitis, unspecified (principal)
CPT/HCPCS: 87651; 99283

== ENCOUNTER 2024-12-28 17:10 | Emergency (ER) | payer OTHER, SELFPAY ==
--- OUTSIDE RECORDS SUMMARY | 2024-12-28 17:13 | XMS_ITS | Clinical Summary ---
Author Organization [facility] Address [address] [place] [address] Care Team Providers Care Microbiological Analyst Name Role Phone Bob Meadows MD Primary Care Provider [phone] Source Comments [facility] [facility],non-owned Affiliates and Associated Physician Practices is amultiple site organization consisting of ambulatory clinics and hospital sitesin [place], [place], [place] and [place]. This disclosure is being madepursuant to the Care Everywhere program and may not contain all information available regarding this patient. Last updated 18.[facility] Allergies No known active allergies Medications * Be aware that medications may not be up to date on this document. Alwaysverify current medications with the patient. sodium chloride ([place]; Baby [place]) 0.65 % nasal spray [place] 1 (one) spray into each nostril 3 [...] Recorded Sex Assigned at Not on file Legal Sex Male 12:12 PM CDT Gender Identity Not on file Sexual Orientation [...] 7:22 AM CDT Height 170.2 cm (5' 7) 03/25/2023 7:22 AM CDT Body Mass Index 27.17 03/25/2023 7:22 AM CDT Plan of Treatment Health Maintenance Due Date Last Done Comments HIV SCREENING 2008 HEPATITIS C SCREENING 12/23/2011 DTAP/TDAP/TD VACCINES (1 - Tdap) 2012 HEPATITIS B VACCINE (1 of 3 - 19+ 3-dose series) 2012 COVID-19 VACCINE (1 - 2023-2 5 season) 2024 DEPRESSION SCREENING 06/22/2024 INFLUENZA VACCINE (#1) 2025 ZOSTER VACCINE (1 of 2) 12/28/2043 HIB [...] on patient's age to complete this topic Insurance [facility] Care Teams Microbiological Analyst Relationship Specialty Start Date End Date Bob Meadows MD [address] [place] [address] [phone] PCP - General Internal Medicine 03/25/23
--- OUTSIDE RECORDS SUMMARY | 2024-12-28 17:13 | XMS_ITS | Data Portability ---
[facility] Address [address] [place] [address] Assessment No assessment recorded. Plan of Treatment [...] and Address Organization Details Recorded Time Asthma 689720427 Active Irena Rangel PA-C Attn: Accounting ,[address] [place], [address] , [facility] 21:19:15 Seasonal allergy 306578032 Active Irena Rangel PA-C Attn: Accounting ,[address] [place], [address] , [facility] 21:19:15 Eczema 54052514 Active Irena Rangel PA-C Attn: Accounting ,[address] [place], [address] , [facility] 21:19:15 Impacted cerumen 51052346 Active Irena Rangel PA-C Attn: Accounting ,[address] [facility], [place], [address] , [facility] 21:19:15 Anxiety 46047448 Active Irena Rangel PA-C Attn: Accounting ,[address] [facility] [address], [place], [address] , [facility] 5 10:23:03 Problem Notes None recorded. Procedures Surgical History Date Name Laterality Status Provider Name and Address Organization Details Recorded Time 5 Cerumen Removal completed Irena Rangel PA-C Attn: Accounting,[address] [facility], [place], [address], [facility] 01/29/2015 21:19:15 Hernia Repair completed [facility] 01/23/2015 15:56:50 Imaging Results None recorded. Procedure [...] index (BMI) Body temperature Heart rate Systolic And Diastolic Provider Name and Address Organization Details Last Updated DateTime 5 20 /min 76411.7 41621 g 99 % 99 % 167.64 cm 26.2 kg/m2 97.8 [degF] 72 /min 118/80 mm[Hg] [facility] 5 15:56:50 Date Recorded Respiratory rate Oxygen saturation Oxygen saturation in Arterial blood by Pulse oximetry Body height Body mass index (BMI) Body temperature Body weight Heart rate Systolic And Diastolic Provider Name and Address Organization Details Last Updated DateTime 5 20 /min 100 % 100 % 167.64 cm 26.6 kg/m2 98.1 [degF] 35957.3 00040 g 81 /min 134/88 mm[Hg] Terry Worthy MA [place] - [facility] 5 09:12:13 Social History Question Answer Notes LastModified by Organizat ion Details LastModified Time Do You Have An Advance Directive? No [email or web address] Information not available 01/23/2015 What Is Your Level Of Caffeine Consumption? None [email or web address] Information not available 01/23/2015 How Much Tobacco Do You Chew? None [email or web address] Information not available 01/23/2015 What Type Of Diet Are You Following? REGULAR [email or web address] Information not available 01/23/2015 Which Illicit Or Recreational Drugs Have You Used? 0 [email or web address] Information not available 01/23/2015 Are There Any Guns Present In Your Home? No Information not available 01/23/2015 Hard Of Hearing Or Deaf In One Or Both Ears? No [email or web address] Information not available 01/23/2015 Legally Blind In One Or Both Eyes? No [email or web address] Information no t available 01/23/2015 Live Alone Or With Others? With Others [email or web address] Information not available 01/23/2015 How Many Children Do You Have? 0 Information not available 01/23/2015 Seat Belts Used Routinely Yes [email or web address] Information not available 01/23/2015 Smoke Alarm In Home Yes [email or web address] Information not available 01/23/2015 How Much Tobacco Do You Smoke? No [email or web address] Information not available 01/23/2015 General Stress Level Low Information not available 01/23/2015 Sex: Unknown Functional Status Question Answer Note LastModified by Organization D etails LastModified Time What is your level of alcohol consumption? None [email or web address] Information not available 01/23/2015 Are you able to care for yourself? Yes Information n ot available 01/23/2015 What is your exercise level? None [email or web address] Information not available 01/23/2015 Mental Status None recorded. Family History Nothing Reported. Medical History Condition Response Asthma Y Allergies Y Past Encounters Encounter ID Performer Location Encounter Start Date Encounter Closed Date Diagnosis/Indication Diagnosis SNOMED-CT Code Diagnosis ICD10 Code Diagnosis Note [id number] MD Julio Cesar Chaves (Adult Med) [address] [place] [address] 01/23/2015 15:18:14 01/23/2015 17:27:19 Asthma 147963215 Seasonal allergy 765424781 Will call with which pharmacy while at school he is going to want to have his medication sent to Eczema 75460962 Impacted cerumen 62810801 [id number] MD Julio Cesar Chaves (Adult Med) [address] [place] [address] 06/18/2015 08:59:37 06/18/2015 10:24:34 Anxiety 86528638 F41.9 Discussed focusing on only school for the next semester States that there are not any counselors on campus but that he will look into it He is going to be moving back to [place] for the summer and taking summer classes [...] None Recorded Advance Directives Directive N: Payers Insurance Date Sequence Insurance Name Policy Number Policy Boudreaux Covered Member ID Boudreaux Member ID Guarantor Name 06/15/2015 1 [facility] - DOS PRIOR TO 2020 (MEDICAID REPLACEMENT - HMO) Shivam Mccormick [id number] Shivam Mccormick Notes Date Note Type Note Provider Name and Address Organization Details Recorded Time 01/23/2015 text/html Here to sabrina Rangel PA-C Attn: Accounting,[address] [facility], [place], [address], [facility] 01/29/2015 21:19:40 06/18/2015 text/html Emergency Room Follow-Up RecordReported bypatient.Notes:here for ED f/u for atypical CP and anxiety - states that he feels better now that he is out of [facility] because he's so stressed at school - states that there are no counselors on campus - 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
[2024-12-28 17:14] VITALS: BP 134/91; PULSE 64; RESP 16; TEMP 36.4; O2SAT 100
[2024-12-28 17:46] LABS: Add Urine Microscopic? NO; Appearance Urine Clear (Clear); Glucose Urine UA Negative (Negative); Leukocyte Esterase Ur Negative LEU/UL (Negative); Nitrate Urine Negative (Negative); Specific Grav Ur 1.026 (1.001-1.035)
--- NOTE | 2024-12-28 18:25 | ED.MALEGU ---
HPI - Male Genitourinary General Chief complaint: Urogenital-Male Stated complaint: uti Time Seen by Provider: 12/28/24 17:33 History of Present Illness HPI Narrative: 29-year-old male presents to the emergency department STD testing. Patient states 2 days ago he had oral, penetrative and receptive anal intercourse in the following day developed a sore throat, rectal pain and dysuria. Denies fever, penile discharge, rectal discharge, rectal bleeding, dysuria, testicular or scrotal pain, abdominal pain, fevers. He has had 2 sexual partners in the past 6 months. Related Data Home Medications ?Medication ?Instructions ?Recorded ?Confirmed ?Last Taken ?Type doxycycline hyclate 100 mg 100 mg PO BID 01/27/23 Unknown History tablet,delayed release Allergies Allergy/AdvReac Type Severity Reaction Status Date / Time No Known Allergies Allergy Verified 12/28/24 17:13 Review of Systems Review of Systems: All systems reviewed & are unremarkable except as noted in HPI and below PMFSH Past Medical History Medical History Healthy adult male Surgical History Surgical History No pertinent past surgical history Social History Social History Substance use: never Exam Narrative: GENERAL: Well-appearing, well-nourished, and in no acute distress. HEAD: Normocephalic, atraumatic. EYES:EOMI. ENT: Nares clear, no rhinorrhea or epistaxis. Mucous membranes moist. Posterior pharynx unremarkable. No tonsillar hypertrophy or exudates, no erythema. No trismus. Patient is tolerating secretions and speaking in full sentences. NECK: Supple. CHEST: Clear to auscultation. No respiratory distress. HEART: Regular rate and rhythm. No murmur heard. Normal peripheral pulses. ABDOMEN: Soft, nontender, nondistended, normal active bowel sounds. RECTAL: Chaperoned by FALLON Marie: Normal external anus with no ulcerations or fissures, no bleeding or discharge. No hemorrhoids. Digital rectal exam with tenderness on palpation to the rectum, no palpable masses or fluctuance, no surrounding cellulitic changes or evidence of perirectal abscess, no palpable internal hemorrhoids. Stool is brown. No melena or hematochezia. EXTREMITIES: Normal range of motion. No edema. SKIN: Warm, dry, no rash. NEURO: No focal deficits. Alert and oriented x3 Course Vital Signs Vital signs: Vital Signs Temperature 97.6 F 12/28/24 17:14 Pulse Rate 64 12/28/24 17:14 Respiratory Rate 16 12/28/24 17:14 Blood Pressure 134/91 H 12/28/24 17:14 Pulse Oximetry 100 12/28/24 17:14 Temperature 97.6 F 12/28/24 17:14 Pulse Rate 64 12/28/24 17:14 Respiratory Rate 16 12/28/24 17:14 Blood Pressure 134/91 H 12/28/24 17:14 Pulse Oximetry 100 12/28/24 17:14 MDM - Male Genitourinary MDM Narrative Medical decision making narrative: 29-year-old male presents emergency department for sore throat, rectal pain and dysuria after having oral, penetrated of anal intercourse and receptive anal intercourse 2 days ago. Triage vitals with elevated blood pressure, otherwise unremarkable. Exam is notable for the above. No evidence of deep space head or neck infection, pharynx is unremarkable, patient is tolerating secretions and speaking in full sentences without trismus. Rectal exam shows no discharge, blood, fissures, ulcerations. There is pain to palpation of the rectum on ROSELIA without evidence of perirectal abscess, no areas of induration or fluctuation, no cellulitic changes. Urinalysis is unremarkable. GC/chlamydia test on urine, pharynx and rectum are pending. Trichomonas off of urine is pending. Patient updated on results. He is requesting empiric treatment for STDs. Will initiate IM Rocephin and provided 2 g of Flagyl and start the patient on doxycycline. I did offer testing for HIV and syphilis in the ED, however patient is requesting to follow-up with his PCP for further testing. I discussed strict ED return precautions. He is agreeable with the plan verbalized understanding. Discharged in stable condition. Lab Data Labs: Lab Results 12/28/24 12/28/24 12/28/24 Range/Units 17:19 17:20 18:49 Urine Color Yellow (Yellow) Urine Appearance Clear (Clear) Urine pH 6.0 (5.0-9.0) Ur Specific [place] 1.026 (1.001-1.035) Urine Protein Negative (Negative) mg/dL Urine Glucose (UA) Negative (Negative) mg/dL Urine Ketones Negative (Negative) mg/dL Ur Blood (Man) Negative (Negative) Urine Nitrate Negative (Negative) Urine Bilirubin Negative (Negative) Urine Urobilinogen 1.0 (<2.0) mg/dL Leukocyte Esterase Rfl Negative (Negative) NIYAH/UL C. trachomatis (PCR) Not detected Not detected (NOT DETECTE) N. gonorrhoeae (PCR) Not detected (NOT DETECTE) Group A Strep (PCR) (Negative) T. vaginalis (PCR) Not detected (NOT DETECTE) 12/28/24 12/28/24 Range/Units 18:49 18:49 Urine Color (Yellow) Urine Appearance (Clear) Urine pH (5.0-9.0) Ur Specific [place] (1.001-1.035) Urine Protein (Negative) mg/dL Urine Glucose (UA) (Negative) mg/dL Urine Ketones (Negative) mg/dL Ur Blood (Man) (Negative) Urine Nitrate (Negative) Urine Bilirubin (Negative) Urine Urobilinogen (<2.0) mg/dL Leukocyte Esterase Rfl (Negative) NIYAH/UL C. trachomatis (PCR) Not detected (NOT DETECTE) N. gonorrhoeae (PCR) Not detected Not detected (NOT DETECTE) Group A Strep (PCR) Not detected (Negative) T. vaginalis (PCR) (NOT DETECTE) Discharge Plan Discharge Clinical Impression: Proctitis, Screen for STD (sexually transmitted disease), Dysuria Patient Disposition: Home Condition: Stable Instructions: Antibiotic Form, Proctitis (ED), Sexually Transmitted Diseases (ED), Safe Sex Practices (ED) Additional Instructions: You are being empirically treated for gonorrhea, chlamydia and Trichomonas. Please take your online portal for your test results. We did not test you for syphilis, hepatitis or HIV. Please make sure to follow-up with her primary care provider for further testing. Do not engage in sexual intercourse until he complete a course of antibiotics and until you are tested for HIV, syphilis and hepatitis. Make sure your partners are tested and treated accordingly as well prior to engaging in sexual intercourse. Return to the emergency department if you develop fever, abdominal pain, difficulty breathing or swallowing, rectal drainage, or other concerning symptoms. Patient Language: Kazakh Prescriptions: New doxycycline monohydrate 100 mg capsule 100 mg PO BID Qty: 14 0RF No Action cefuroxime axetil 500 mg tablet 500 mg PO BID Qty: 14 0RF oseltamivir [Tamiflu] 75 mg capsule 75 mg PO Q12H 5 Days Qty: 10 0RF doxycycline hyclate 100 mg Tablet,Delayed Release (Dr/Ec) 100 mg PO BID cephalexin 500 mg capsule 500 mg PO Q12H 7 Days Qty: 14 0RF Follow-up/Referrals: Dori,Bob Barroso MD [Primary Care Provider] -
--- OUTSIDE RECORDS SUMMARY | 2024-12-28 19:02 | XMS_ITS | Clinical Summary ---
Author Organization [facility] Address [address] [place] [address] Care Team Providers Care Dishwasher Name Role Phone Bob Meadows MD Primary Care Provider [phone] Source Comments [facility],non-owned Affiliates and Associated Physician Practices is amultiple site organization consisting of ambulatory clinics and hospital sitesin [place], [place], [place] and [place]. This disclosure is being madepursuant to the Care Everywhere program and may not contain all information available regarding this patient. Last updated 18.[facility] Allergies No known active allergies Medications * Be aware that medications may not be up to date on this document. Alwaysverify current medications with the patient. sodium chloride ([place]; Baby [place]) 0.65 % nasal spray [place] 1 (one) spray into each nostril 3 [...] patient's age to complete this topic Insurance [facility] Care Teams Dishwasher Relationship Specialty Start Date End Date Bob Meadows MD [address] [place] [address] [phone] PCP - General Internal Medicine 03/25/23
[2024-12-28 19:11] LABS: Trichomonas Vag PCR NOT DETECTED (NOT DETECTE)
[2024-12-28 19:20] LABS: Strep Group A RT-PCR NOT DETECTED (Negative)
[2024-12-28] MEDS: DOXYCYCLINE HYCLATE 100 MG TABLET PO (19:25)
[2024-12-28] MEDS: cefTRIAXone 1 GM VIAL 0.5 GM IM (19:25)
== END 2024-12-28 19:34 | disposition home or self-care (01) ==
LOC: ANHED 19:01
PROVIDERS: Emergency Provider Physician Assistant; PCP Internal Medicine
DX: K62.89 Other specified diseases of anus and rectum (principal); R30.0 Dysuria; Z11.3 Encounter for screening for infections with a predominantly sexual mode of transmission
CPT/HCPCS: 81003; 87491; 87591; 87651; 87661; 96372; 99283; A9270; J0696